=== PATIENT | male | born 1940 | race Caucasian/White ===

== ENCOUNTER 2021-02-13 11:30 | Emergency (ER) | payer MEDICARE, BC ==
[2021-02-13] MEDS ORDERED: Lidocaine 1% 10 ML MDV ONE ×2 (11:35→16:00)
[2021-02-13] MEDS ORDERED: propofoL 100 ML ONE (11:47)
--- NOTE | 2021-02-13 11:55 | EDM.PDOC ---
ED HPI GENERAL MEDICAL PROBLEM - General Chief Complaint: CPR in Progress Stated Complaint: [facility] Time Seen by Provider: 02/13/21 11:30 Source of Information: Reports: EMS History Limitations: Reports: Other (Unresponsive) - History of Present Illness INITIAL COMMENTS - FREE TEXT/NARRATIVE: 80-year-old male presents to the ED with CPR in progress. 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 The owners attended to him quickly and identified no pulse and started CPR. CPR is estimated to have lasted a minute to a minute and a half. They had an AED in their facility and were able to attach it appropriately and it suggested shock advised. Apparently a shock was given. Paramedics arrived about that time and took over care. They identified that the patient was in and out of V. tach with an underlying fast rhythm suggestive of A. fib. Patient started to have agonal breathing and a facilitated his breathing by initial Ambu bag and then a simple mask at 15 L/min. Upon arrival in the emergency room the patient is unresponsive. He is taking agonal breaths. He was resuscitated with Ambu bag at 15 L/min. Plans to intubate were organized. His rhythm on the monitor revealed V. tach and therefore he was given lidocaine 150 mg IV bolus. This did improve his V. tach and his underlyi ng rhythm was in the 150s and 160s at atrial fibrillation. Subsequently was started on amiodarone infusion at 60 mg an hour. He did receive a bolus of 150mg of amiodarone as well. He was intubated using etomidate 40 mg IV bolus followed by succinylcholine 150 mg IV bolus. Resuscitated at second attempt due to pooled secretions in his airway that required suctioning. No blood in the airway noted. Subsequently had an orogastric tube placed. Foss catheter placed. Chest x-ray reveals orogastric tube to be below the diaphragm in the stomach. ET tube is 2 cm above the wesley and is anchored at 23 cm at the corner of his right lip. Placed on ventilator with a tidal volume of 550 mils and a rate of 12 with an FiO2 of initially of 70% and PEEP of 5. ECG reveals atrial fibrillation with a rate of 110 to 160 bpm. There is a right bundle branch block pattern. There is ST segment depression in leads I, aVL and V3 to V6 suggestive of toy lateral wall non[place]. There are Q waves present in leads II, III and aVF compared with old inferior wall myocardial infarction. Left axis deviation of -76 degrees with QTC markedly prolonged. Once the patient is stabilized rhythm plan will take him to CT for CT head as it is unclear of how hard he hit his head when he fell to the floor. If there is no intracranial bleeding he will be started on heparin infusion 4000 unit bolus and 1000 units an hour. Given rectal suppository of aspirin 300 mg. ABGs to be done. Of note during the initial resuscitation he did receive 1 amp of sodium bicarb. Onset: Today, Sudden Onset Date: 02/13/21 Onset Time: 11:10 Duration: Minutes: Location: Reports: Other (Suffered collapse to the floor and identified to have no pulse resuscitated with an AED in the workplace where he collapsed. Shock was advised and 1 shock was given.) Quality: Reports: Other (Patient arrives unresponsive taking agonal breaths.) Severity: Severe Improves with: Reports: None Worsens with: Reports: None Context: Reports: Other (Sudden collapse while in a local [employer] br[employer] operator shop. Cardiac arrest with CPR started and then AED advised shock advised him 1 shock was given. Patient was in V. tach alternating with a rapid irregular rhythm presumed to be atrial fibrillation by paramedics.). 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 Temperature 36.1 degrees heart rate between 140 and 160 with atrial fibrillation. Respiratory rate 26/min with shallow respirations initial BP 200/110) Eye Exam: Bilateral Eye: Normal Inspection (No blepharal pallor or scleral icterus.), PERRL (Pupils were 8 mm dilated but did respond to light equally.) Ears: Other (No bleeding from either ear.) Nose: Normal Inspection Throat/Mouth: Other (Heavily bearded fellow. No blood on the face) Head: Atraumatic, Normocephalic, Other (No obvious trauma to the head or neck) Neck: No: Lymphadenopathy (R), Lymphadenopathy (L) Respiratory Chest: Respiratory Distress (Agonal breathing shallow breathing) Cardiovascular: No JVD, Irregularly Irregular (Monitor suggest an irregular rhythm between 140 and 160/min and appears to be atrial fibrillation with inter mittent runs of V. tach 12-20 beats at a time. Improved after lidocaine 150 mg IV was given) GI/Abdominal Exam: Soft, Non-Tender, No Organomegaly 0: Femoral (R), Femoral (L) (On initial assessment), 1+: Right Carotid, Left Carotid (Barely palpable carotid pulses.) Extremities: Other (Right leg is bandaged with an Sravan wrap. Edema 4+ pitting both lower extremities) Neurological: Unresponsive Skin Exam: Cool ED CPR PROCEDURES - Endotracheal Intubation Time of Intubation: 11:40 ET Intubation Indication: Cardiac Arrest Preparation: Suction, Balloon Tested, BVM Set Up, Difficult Airway Equip Airway Assessment: Obese, Large Tongue Pre-Oxygenation: Assisted with BVM, 100% FiO2 Anesthesia Meds: Etomidate, Lidocaine (150 mg), Succinylcholine (40 mg 150 mg), Vecuronium (10 mg) Placement: Orotracheal Cords Visualized: No, Grade 3 Number of Attempts: 1 Confirmed By: CO2 Indicator, Bilateral Breath Sounds, Chest Xray Tube Secured By: By RT #1 Interpretation EKG Date: 02/13/21 Time: 12:13 Rhythm: A-Fib Rate (Beats/Min): 109 [place]: LAD-Left [place] Deviation (-76 degrees) P-Wave: Absent QRS: Other (Right bundle branch block pattern Q waves present in leads II, III and aVF compared with old inferior wall myocardial infarction) ST-T: Depressed (ST segment depression in leads I, aVL and V3 to V6 compatible with anterolateral non-STEMI) QT: Prolonged (Markedly prolonged) EKG Interpretation Comments: Abnormal ECG Course - Vital Signs Last Recorded V/S: Last Vital Signs Temp 36.1 C 02/13/21 11:30 Pulse 140 H 02/13/21 11:30 Resp 26 H 02/13/21 11:30 BP 200/110 H 02/13/21 11:30 Pulse Ox 99 02/13/21 11:30 - Orders/Labs/Meds Orders: Active Orders 24 hr Category Date Time Status RASS Sedation Scale [RC] ASDIRECTED Care 02/13/21 12:23 Active RT Ventilator, Adult [RC] ASDIRECTED Care 02/13/21 12:23 Active Heparin Sodium/D5W [Heparin 25,000 Units in D5W 500 ML] Med 02/13/21 12:45 Active 25,000 units in 500 ml IV TITRATE Sodium Chloride 0.9% [Normal Saline] 1,000 ml Med 02/13/21 12:00 Active IV ASDIRECTED Medication Orders Sodium Chloride (Normal Saline) 1,000 mls @ 125 mls/hr IV ASDIRECTED NICK Last Admin: 02/13/21 11:52 Dose: 125 mls/hr Documented by: ISRA Heparin Sodium/Dextrose (Heparin 25,000 Units In D5w 500 Ml) 25,000 units in 500 mls @ 20 mls/hr IV TITRATE NICK Last Admin: 02/13/21 13:24 Dose: 1,000 units/hr, 20 mls/hr Documented by: ISRA Cosigned by: MELYSSA Labs: Laboratory Tests 02/13/21 02/13/21 02/13/21 Range/Units 12:15 12:15 12:15 WBC 10.08 H (4.23-9.07) K/mm3 RBC 4.41 L (4.63-6.08) M/mm3 Hgb 13.3 L (13.7-17.5) gm/dl Hct 41.2 (40.1-51.0) % MCV 93.4 H (79.0-92.2) fl MCH 30.2 (25.7-32.2) pg MCHC 32.3 (32.2-35.5) g/dl RDW Std Deviation 44.7 H (35.1-43.9) fL Plt Count 277 (163-337) K/mm3 MPV 10.5 (9.4-12.3) fl Neut % (Auto) 73.7 H (34.0-67.9) % Lymph % (Auto) 15.2 L (21.8-53.1) % [place] % (Auto) 8.1 (5.3-12.2) % Eos % (Auto) 1.9 (0.8-7.0) Baso % (Auto) 0.4 (0.1-1.2) % Neut # (Auto) 7.43 H (1.78-5.38) K/mm3 Lymph # (Auto) 1.53 (1.32-3.57) K/mm3 [place] # (Auto) 0.82 (0.30-0.82) K/mm3 Eos # (Auto) 0.19 (0.04-0.54) K/mm3 Baso # (Auto) 0.04 (0.01-0.08) K/mm3 ESR 14 (0-15) mm/hr PT 11.5 (9.7-12.0) SECONDS INR 1.04 APTT 22.4 (21.7-31.4) SECONDS Puncture Site ABG pH (7.35-7.45) ABG pCO2 (35.0-45.0) mmHg ABG pO2 (80.0-100.0) mmHg ABG HCO3 (22.0-26.0) meq/L ABG O2 Saturation (96.0-97.0) % ABG Base Excess (-2-2.0) A-a Gradient mmHg FiO2 (21.00-100.00) % Tidal Volume cc PEEP cmH20 Lactic Acid (0.4-2.0) mmol/L Magnesium (1.8-2.4) mg/dL CK-MB (CK-2) (0-3.6) ng/ml Troponin I (0.00-0.056) ng/mL C-Reactive Protein (<1.0) mg/dL NT-Pro-B Natriuret Pep (0-450) pg/mL SARS-CoV-2 RNA (JAM) (NEGATIVE) 02/13/21 02/13/21 02/13/21 Range/Units 12:15 12:15 12:15 WBC (4.23-9.07) K/mm3 RBC (4.63-6.08) M/mm3 Hgb (13.7-17.5) gm/dl Hct (40.1-51.0) % MCV (79.0-92.2) fl MCH (25.7-32.2) pg MCHC (32.2-35.5) g/dl RDW Std Deviation (35.1-43.9) fL Plt Count (163-337) K/mm3 MPV (9.4-12.3) fl Neut % (Auto) (34.0-67.9) % Lymph % (Auto) (21.8-53.1) % [place] % (Auto) (5.3-12.2) % Eos % (Auto) (0.8-7.0) Baso % (Auto) (0.1-1.2) % Neut # (Auto) (1.78-5.38) K/mm3 Lymph # (Auto) (1.32-3.57) K/mm3 [place] # (Auto) (0.30-0.82) K/mm3 Eos # (Auto) (0.04-0.54) K/mm3 Baso # (Auto) (0.01-0.08) K/mm3 ESR (0-15) mm/hr PT (9.7-12.0) SECONDS INR APTT (21.7-31.4) SECONDS Puncture Site ABG pH (7.35-7.45) ABG pCO2 (35.0-45.0) mmHg ABG pO2 (80.0-100.0) mmHg ABG HCO3 (22.0-26.0) meq/L ABG O2 Saturation (96.0-97.0) % ABG Base Excess (-2-2.0) A-a Gradient mmHg FiO2 (21.00-100.00) % Tidal Volume cc PEEP cmH20 Lactic Acid 5.4 H* (0.4-2.0) mmol/L Magnesium 1.7 L (1.8-2.4) mg/dL CK-MB (CK-2) 3.6 (0-3.6) ng/ml Troponin I 0.023 (0.00-0.056) ng/mL C-Reactive Protein 1.4 H* (<1.0) mg/dL NT-Pro-B Natriuret Pep 1935 H (0-450) pg/mL SARS-CoV-2 RNA (JAM) (NEGATIVE) 02/13/21 02/13/21 Range/Units 12:20 12:29 WBC (4.23-9.07) K/mm3 RBC (4.63-6.08) M/mm3 Hgb (13.7-17.5) gm/dl Hct (40.1-51.0) % MCV (79.0-92.2) fl MCH (25.7-32.2) pg MCHC (32.2-35.5) g/dl RDW Std Deviation (35.1-43.9) fL Plt Count (163-337) K/mm3 MPV (9.4-12.3) fl Neut % (Auto) (34.0-67.9) % Lymph % (Auto) (21.8-53.1) % [place] % (Auto) (5.3-12.2) % Eos % (Auto) (0.8-7.0) Baso % (Auto) (0.1-1.2) % Neut # (Auto) (1.78-5.38) K/mm3 Lymph # (Auto) (1.32-3.57) K/mm3 [place] # (Auto) (0.30-0.82) K/mm3 Eos # (Auto) (0.04-0.54) K/mm3 Baso # (Auto) (0.01-0.08) K/mm3 ESR (0-15) mm/hr PT (9.7-12.0) SECONDS INR APTT (21.7-31.4) SECONDS Puncture Site Rt radial ABG pH 7.36 (7.35-7.45) ABG pCO2 45.2 H (35.0-45.0) mmHg ABG pO2 186.0 H* (80.0-100.0) mmHg ABG HCO3 25.0 (22.0-26.0) meq/L ABG O2 Saturation 99.0 H (96.0-97.0) % ABG Base Excess -0.1 (-2-2.0) A-a Gradient 256 mmHg FiO2 70.00 (21.00-100.00) % Tidal Volume 550.0 cc PEEP 5.0 cmH20 Lactic Acid (0.4-2.0) mmol/L Magnesium (1.8-2.4) mg/dL CK-MB (CK-2) (0-3.6) ng/ml Troponin I (0.00-0.056) ng/mL C-Reactive Protein (<1.0) mg/dL NT-Pro-B Natriuret Pep (0-450) pg/mL SARS-CoV-2 RNA (JAM) Negative (NEGATIVE) Meds: Medications Generic Name Dose Route Start Last Admin Trade Name Freq PRN Reason Stop Dose Admin Sodium Chloride 1,000 mls @ 125 mls/hr 02/13/21 12:00 02/13/21 11:52 Normal Saline IV 125 mls/hr ASDIRECTED NICK Administration Heparin Sodium/Dextrose 25,000 units in 500 mls @ 20 mls/hr 02/13/21 12:45 02/13/21 13:24 Heparin 25,000 Units In D5w 500 Ml IV 1,000 units/hr TITRATE NICK 20 mls/hr Administration 1,000 UNITS/HR Discontinued Medications Generic Name Dose Route Start Last Admin Trade Name Freq PRN Reason Stop Dose Admin Aspirin 300 mg 02/13/21 12:43 02/13/21 13:26 Aspirin 300 Mg Supp RECTAL 02/13/21 12:44 300 mg ONETIME ONE Administration Heparin Sodium (Porcine) 4,000 units 02/13/21 12:43 02/13/21 13:16 Heparin Sodium 5,000 Units/Ml Vial IVPUSH 02/13/21 12:44 4,000 units .BOLUS ONE Administration Propofol Confirm 02/13/21 11:47 Diprivan 100 Ml Administered 02/13/21 11:48 Dose 100 mls @ as directed .ROUTE .STK-MED ONE Amiodarone HCl/Dextrose 100 mls @ 600 mls/hr 02/13/21 12:28 02/13/21 12:32 Nexterone In Dextrose 150 Mg/100 Ml IV 02/13/21 12:37 600 mls/hr .BOLUS ONE Administration Protocol Lidocaine HCl Confirm 02/13/21 11:35 Lidocaine 1% 10 Ml Mdv Administered 02/13/21 11:36 Dose 10 ml .ROUTE .STK-MED ONE Vecuronium [place] 10 mg 02/13/21 11:52 02/13/21 13:11 Vecuronium 10 Mg Vial IVPUSH 02/13/21 11:53 10 mg ONETIME ONE Administration Vecuronium [place] Confirm 02/13/21 14:42 Vecuronium 10 Mg Vial Administered 02/13/21 14:43 Dose 10 mg .ROUTE .STK-MED ONE - Radiology Interpretation Free Text/Narrative:: 80-year-old male presents to the ED per [facility] after suffering a collapse to 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 The owners attended him immediately and identified no pulse and no breathing. CPR was started and estimated to have lasted about a minute to a minute and a half. They had an AED on the premises and attached it appropriately to him. It suggested shock advised and he was defibrillated. Paramedics arrived at that time and identified him to be in a rapid irregular rhythm with wide-complex tachycardias intermittent with short complexes. On the strip that the brought with them it appears that he had underlying atrial fibrillation with runs of V. tach. Upon arrival in the ED patient was unresponsive with agonal breathing. Was on a simple mask at 15 L/min and moaning and groaning. Diffuse rattling throughout both upper lung [place] suggestive of possible aspiration. He was therefore intubated with a #8 ET tube at 23 cm corner of his right lip and placed on vent with a tidal volume of 550 mils, FiO2 of 70%, PEEP of 5, rate of 12 .Orogastric tube was placed. Foss catheter placed. Patient had a run of V. tach shortly after being intubated. This was treated with lidocaine 150 mg IV. Subsequently when the amiodarone became available he was started on amiodarone drip at 60 mg an hour. Approximately 15 minutes later he had another run of V. tach and therefore was given 150 mg bolus of amiodarone. ECG reveals evidence of Q waves in leads II, III and aVF compared with old inferior wall myocardial infarction. He had diffuse ST segment to depression in leads I, aVL and V3 to V6 suggesting anterolateral ischemia or non-STEMI. There is a right bundle branch block pattern. QTc markedly prolonged left axis deviation -76 degrees. Once the patient was stabilized he was taken to the CT suite where head CT was performed. Was unclear how hard he hit the floor with his head when he passed out. CT reveals ventricles along with the basal cisterns and sulci over the convexities to be mildly prominent. Minimal diminished density is noted within the periventricular white matter which is most likely due to small vessel ischemic demyelination changes. Slight motion artifact persists within the basal cuts. No definite signs of intracranial hemorrhage are identified. No midline shift or mass-effect identified. There is mild mucosal thickening noted within the ethmoid and frontal sinuses. Minimal fluid is seen within the sphenoid sinus. Mastoid sinuses are clear. Chest x-ray done portably reveals the ET tube to be 2 cm above the wesley and is anchored at 23 cm corner of the right lip. Orogastric tube passes below the diaphragm and into the stomach appropriately. I did touch base with [facility] in [place] and [facility] and both of them did not have availability of an ICU bed. Therefore contacted 1 call service through [facility] in [place] and patient has been accepted formally to the intensive care unit at that facility. He will be flown to that facility per air ambulance. Ventilation settings remain with a tidal volume of 550 mils with an FiO2 of 50% and rate of 14 and PEEP of 5. - Re-Assessments/Exams Free Text/Narrative Re-Assessment/Exam: 02/13/21 13:27White count is 10.08 with 73.7% neutrophils on the auto differential. Hemoglobin is 13.3 hematocrit is 41.2 platelet count 277,000. PT is 11.5 with an INR of 1.04 and a PTT of 22.4. Initial blood gases were not arterial they were mixed. Repeat blood gases were done 15 minutes later and revealed a pH of 7.C36 with a PCO2 of 45.2 and a PO2 of 186.0 bicarb 25 oxygen saturation 99% on the vent. FiO2 was reduced from 70 to 50%. Magnesium is slightly low at 1.76K CK-MB fraction of 3.6 and a troponin I of 0.023 .C- reactive protein 1.4 02/13/21 14:15 pressure is down to 120/72. He is starting to show some bradycardia anywhere from 40 to 58/min. I am going to back off on the amiodarone infusion. Departure - Departure Time of Disposition: 16:05 Disposition: DC/Tfer to Acute Hospital 02 Condition: Serious Clinical Impression: Cardiac arrest due to underlying cardiac condition, Non-STEMI (non-ST elevated myocardial infarction) - Discharge Information *PRESCRIPTION DRUG MONITORING PROGRAM REVIEWED*: Not Applicable *COPY OF PRESCRIPTION DRUG MONITORING REPORT IN PATIENT PIPE: Not Applicable Forms: ED Department Discharge Critical Care Note - Critical Care Note Total Time (mins): 120 Sepsis Event Note (ED) - Focused Exam Vital Signs: Vital Signs Temp Pulse Resp BP Pulse Ox 02/13/21 11:30 36.1 C 140 H 26 H 200/110 H 99 - My Orders Last 24 Hours: My Active Orders 02/13/21 12:00 Sodium Chloride 0.9% [Normal Saline] 1,000 ml IV ASDIRECTED 02/13/21 12:23 RASS Sedation Scale [RC] ASDIRECTED RT Ventilator, Adult [RC] ASDIRECTED 02/13/21 12:45 Heparin Sodium/D5W [Heparin 25,000 Units in D5W 500 ML] 25,000 units in 500 ml IV TITRATE - Assessment/Plan Last 24 Hours: My Active Orders 02/13/21 12:00 Sodium Chloride 0.9% [Normal Saline] 1,000 ml IV ASDIRECTED 02/13/21 12:23 RASS Sedation Scale [RC] ASDIRECTED RT Ventilator, Adult [RC] ASDIRECTED 02/13/21 12:45 Heparin Sodium/D5W [Heparin 25,000 Units in D5W 500 ML] 25,000 units in 500 ml IV TITRATE
[2021-02-13] MEDS ORDERED: Sodium Chloride 0.9% 1,000 ML IV SCH (12:00)
--- NOTE | 2021-02-13 12:16 | CR ---
Chest: Supine view of the chest was obtained. Comparison: No prior chest imaging is available. Endotracheal tube is seen which lies below the clavicle. Tip of the endotracheal tube lies approximately 2 cm above the wesley. Nasogastric tube is seen with tip coursing off the inferior edge of the film but is within the stomach. Pulmonary vessels are congested. Heart size and mediastinum are within normal limits. Impression: 1. Pulmonary vessels are slightly congested. 2. Endotracheal tube approximately 2 cm from the wesley. 3. Satisfactory nasogastric tube placement. Diagnostic code #3
[2021-02-13] MEDS ORDERED: Heparin Sodium 5,000 Units/ML Vial IVPUSH ONE (12:43)
[2021-02-13] MEDS ORDERED: Aspirin 300 MG Supp RECTAL ONE (12:43)
[2021-02-13] MEDS ORDERED: Heparin Sodium/D5W 25,000 UNITS/500 ML BAG IV SCH (12:45)
--- NOTE | 2021-02-13 13:16 | CT ---
Head CT Technique: Multiple axial sections through the brain were obtained. Intravenous contrast was not utilized. Study was repeated due to motion artifact. Reconstructed coronal and sagittal images were obtained. Comparison: No prior intracranial imaging is available. Findings: Ventricles along with basal cisterns and sulci over the convexities are mildly prominent. Minimal diminished density is noted within the periventricular white matter which is most likely due to small vessel ischemic demyelination change. Slight motion artifact persists within the base cuts. No definite findings of intracranial hemorrhage is seen. No midline shift or mass-effect is seen. Bone window settings were reviewed which show fluid within the maxillary sinuses. Mild mucosal thickening is noted within the ethmoid and frontal sinuses. Minimal fluid is seen within the sphenoid sinus. Mastoid sinuses show nothing acute. No definite acute osseous abnormality is appreciated. Impression: 1. Slight sinus findings. Fluid is noted which is most likely relating to patient's underlying condition. Other sinus findings are most likely chronic. 2. Mild senescent change is noted. 3. Nothing acute is definitely appreciated on noncontrast head CT study. Diagnostic code #2
[2021-02-13] MEDS ORDERED: Etomidate 2 MG/ML 20 ML SDV IVPUSH ONE (16:00)
[2021-02-13] MEDS ORDERED: Succinylcholine 200 MG/10 ML MDV ONE (16:00)
[2021-02-13] MEDS ORDERED: Sodium Bicarbonate 8.4% 50 MEQ/50 ML Syringe ONE (16:00)
== END 2021-02-13 16:31 ==
LOC: JD.ED 11:30
DX: I21.4 Non-ST elevation (NSTEMI) myocardial infarction (principal); I46.2 Cardiac arrest due to underlying cardiac condition; Z20.822 Contact with and (suspected) exposure to COVID-19
CPT/HCPCS: 31500; 36415; 36600; 43752; 51702; 70450; 71045; 82553; 82803; 83605; 83735; 83880; 84484; 85025; 85610; 85652; 85730; 86140; 92950; 93005; 96365; 96375; 99291; A9270; J0282; J0330; J1644; J2704; J3490; J7030; U0002; 93010; 99292

== ENCOUNTER 2022-10-23 11:04 | Emergency (ER) | payer BC, MEDICARE ==
[2022-10-23] MEDS ORDERED: Sodium Chloride 0.9% 10 ML Syringe FLUSH PRN (11:22)
[2022-10-23 12:13] LABS: BASOPHILS ABSOLUTE AUTO 0.02 K/mm3 (0.01-0.08); BASOPHILS PERCENT AUTO 0.3 % (0.1-1.2); EOSINOPHILS ABSOLUTE AUTO 0.14 K/mm3 (0.04-0.54); EOSINOPHILS PERCENT AUTO 2.4 (0.8-7.0); HEMATOCRIT 35.2 % (40.1-51.0); HEMOGLOBIN 11.1 gm/dl (13.7-17.5); IMMATURE GRAN ABSOLUTE AUTO 0.01 K/mm3 (0.00-0.10); IMMATURE GRAN PERCENT AUTO 0.2 % (<=1.0); LYMPHOCYTES ABSOLUTE AUTO 0.59 K/mm3 (1.32-3.57); LYMPHOCYTES PERCENT AUTO 10.2 % (21.8-53.1); MEAN CORPUSCULAR HEMOGLOBIN 30.9 pg (25.7-32.2); MEAN CORPUSCULAR HGB CONC 31.5 g/dl (32.2-35.5); MEAN CORPUSCULAR VOLUME 98.1 fl (79.0-92.2); MEAN PLATELET VOLUME 11.2 fl (9.4-12.3); MONOCYTES ABSOLUTE AUTO 0.54 K/mm3 (0.30-0.82); MONOCYTES PERCENT AUTO 9.4 % (5.3-12.2); NEUTROPHILS ABSOLUTE AUTO 4.46 K/mm3 (1.78-5.38); NEUTROPHILS PERCENT AUTO 77.5 % (34.0-67.9); PLATELET COUNT,PLT 201 K/mm3 (163-337); RED BLOOD CELL COUNT 3.59 M/mm3 (4.63-6.08); WHITE BLOOD CELL COUNT,WBC 5.76 K/mm3 (4.23-9.07)
[2022-10-23 12:38] LABS: ALANINE AMINOTRANSFERASE,ALT 37 U/L (16-63); ALBUMIN 3.4 g/dl (3.4-5.0); ALKALINE PHOSPHATASE 56 U/L (46-116); ANION GAP 14.8 (5-15); ASPARTATE AMNIOTRANSFERASE,AST 22 U/L (15-37); BILIRUBIN TOTAL 0.7 mg/dL (0.2-1.0); BLOOD UREA NITROGEN,BUN 19 mg/dL (7-18); BUN/CREATININE RATIO 11.2 (14-18); C-REACTIVE PROTEIN 0.9 mg/dL (<1.0); CALCIUM 9.2 mg/dL (8.5-10.1); CARBON DIOXIDE,CO2 30 mEq/L (21-32); CHLORIDE,CL 102 mEq/L (98-107); CREATININE 1.7 mg/dL (0.7-1.3); ESTIMATED GFR 40 mL/min (>60); GLUCOSE RANDOM 106 mg/dL (70-99); POTASSIUM,K 3.8 mEq/L (3.5-5.1); PROTEIN TOTAL,TP 6.9 g/dl (6.4-8.2); SODIUM,NA 143 mEq/L (136-145)
[2022-10-23 12:53] LABS: APPEARANCE,URINE CLEAR (Clear); BILIRUBIN,URINE NEGATIVE (Negative); COLOR,URINE YELLOW (Yellow); GLUCOSE,URINE NEGATIVE (Negative); KETONES,URINE NEGATIVE (Negative); LEUKOCYTE ESTERASE,URINE 1+ (Negative); NITRITE,URINE POSITIVE (Negative); OCCULT BLOOD,URINE TRACE-INTACT (Negative); PROTEIN,URINE 1+ (Negative); UROBILINOGEN,URINE 0.2 (0.2-1.0)
[2022-10-23] MEDS ORDERED: Torsemide 20 MG Tab PO ONE (13:53)
[2022-10-23 14:35] LABS: BACTERIA,URINE MANY /hpf (FEW); HYALINE CASTS,URINE 0-5 /lpf (0-5); MUCUS,URINE FEW /hpf (FEW); RBC,URINE 0-5 /hpf (0-5); SQUAMOUS EPITHELIAL CELLS,UR 0-5 /hpf (0-5); WBC,URINE 0-5 /hpf (0-5)
== END 2022-10-23 14:25 | disposition home or self-care (01) ==
LOC: JD.ED 11:04
DX: N30.00 Acute cystitis without hematuria (principal); R60.0 Localized edema; I25.2 Old myocardial infarction; J44.9 Chronic obstructive pulmonary disease, unspecified; E11.9 Type 2 diabetes mellitus without complications; Z79.01 Long term (current) use of anticoagulants; Z79.02 Long term (current) use of antithrombotics/antiplatelets; Z79.899 Other long term (current) drug therapy; Z79.84 Long term (current) use of oral hypoglycemic drugs
CPT/HCPCS: 36415; 70450; 71046; 80053; 81001; 83880; 84484; 85025; 86140; 87086; 87088; 87186; 93005; 99284; A9270; J3490; 93010; 99283

== ENCOUNTER 2023-11-25 04:09 | Emergency (ER) | payer MEDICARE ==
[2023-11-25 04:25] LABS: BASOPHILS PERCENT AUTO 0.2 % (0.0-1.0); EOSINOPHILS ABSOLUTE AUTO 0.1 K/mm3 (0.0-0.4); HEMATOCRIT 32.1 % (42.0-52.0); HEMOGLOBIN 10.8 gm/dl (14.0-18.0); IMMATURE GRAN ABSOLUTE AUTO 0.21 K/mm3 (0.00-0.05); IMMATURE GRAN PERCENT AUTO 2.3 % (0.0-0.4); LYMPHOCYTES ABSOLUTE AUTO 0.6 K/mm3 (1.0-4.8); MEAN CORPUSCULAR HEMOGLOBIN 31.5 pg (28.0-32.0); MEAN CORPUSCULAR HGB CONC 33.6 g/dl (32.0-36.0); MEAN CORPUSCULAR VOLUME 93.6 fl (83.0-99.0); MEAN PLATELET VOLUME 8.9 fl (9.4-12.4); MONOCYTES ABSOLUTE AUTO 0.8 K/mm3 (0.0-0.8); MONOCYTES PERCENT AUTO 8.5 % (0.0-8.0); NEUTROPHILS ABSOLUTE AUTO 7.4 K/mm3 (1.8-7.7); PLATELET COUNT,PLT 241 K/mm3 (150-400); RED BLOOD CELL COUNT 3.43 M/mm3 (4.52-5.90); WHITE BLOOD CELL COUNT,WBC 9.09 K/mm3 (3.9-11.3)
[2023-11-25 05:05] LABS: A/G RATIO 0.8 (1-2); ALBUMIN 3.2 g/dl (3.4-5.0); ANION GAP 7.9 (5-15); BILIRUBIN TOTAL 0.5 mg/dL (0.2-1.0); BUN/CREATININE RATIO 27.4 (14-18); CALCIUM 8.9 mg/dL (8.5-10.1); CREATININE 2.7 mg/dL (0.7-1.3); EST CRCL DRUG DOSING (CG) 20.06 mL/min; POTASSIUM,K 3.9 mEq/L (3.5-5.1)
[2023-11-25] MEDS: Sodium Chloride 0.9% 500 ML IV ONE (05:38)
== END 2023-11-25 08:15 | disposition home or self-care (01) ==
LOC: JD.ED 04:09
DX: I20.0 Unstable angina (principal); E86.0 Dehydration; I50.9 Heart failure, unspecified; J44.9 Chronic obstructive pulmonary disease, unspecified; I25.2 Old myocardial infarction; E11.9 Type 2 diabetes mellitus without complications; Z79.01 Long term (current) use of anticoagulants; Z79.02 Long term (current) use of antithrombotics/antiplatelets; Z79.899 Other long term (current) drug therapy
CPT/HCPCS: 36415; 71045; 80053; 83880; 84484; 85025; 93005; 96360; 99285; J7030; 93010; 99283

== ENCOUNTER 2024-03-01 08:24 | Inpatient (IN) | payer MEDICARE ==
[2024-03-01 09:10] LABS: BASOPHILS PERCENT AUTO 0.1 % (0.0-1.0); EOSINOPHILS PERCENT AUTO 0.1 % (0.0-6.0); HEMOGLOBIN 12.6 gm/dl (14.0-18.0); IMMATURE GRAN ABSOLUTE AUTO 0.27 K/mm3 (0.00-0.05); IMMATURE GRAN PERCENT AUTO 1.9 % (0.0-0.4); LYMPHOCYTES ABSOLUTE AUTO 0.6 K/mm3 (1.0-4.8); LYMPHOCYTES PERCENT AUTO 3.9 % (24.0-44.0); MEAN CORPUSCULAR HEMOGLOBIN 31.3 pg (28.0-32.0); MEAN CORPUSCULAR VOLUME 86.8 fl (83.0-99.0); MEAN PLATELET VOLUME 11.5 fl (9.4-12.4); MONOCYTES ABSOLUTE AUTO 0.9 K/mm3 (0.0-0.8); MONOCYTES PERCENT AUTO 6.1 % (0.0-8.0); NEUTROPHILS ABSOLUTE AUTO 12.3 K/mm3 (1.8-7.7); NEUTROPHILS PERCENT AUTO 87.9 % (41.0-71.0); PLATELET COUNT,PLT 244 K/mm3 (150-400); RED BLOOD CELL COUNT 4.03 M/mm3 (4.52-5.90); WHITE BLOOD CELL COUNT,WBC 13.99 K/mm3 (3.9-11.3)
[2024-03-01] MEDS: fentaNYL 100 MCG/2 ML SDV IVPUSH ONE (09:34)
[2024-03-01] MEDS: Sodium Chloride 0.9% 10 ML Syringe FLUSH PRN (09:36)
[2024-03-01] MEDS: Sodium Chloride 0.9% 500 ML IV ONE ×2 (09:37→13:10)
[2024-03-01] MEDS: Ondansetron 4 MG/2 ML SDV IVPUSH ONE (10:36)
[2024-03-01 10:39] LABS: ALBUMIN 3.8 g/dl (3.4-5.0); BILIRUBIN TOTAL 0.8 mg/dL (0.2-1.0); CALCIUM 9.4 mg/dL (8.5-10.1); CREATININE 5.1 mg/dL (0.7-1.3); EST CRCL DRUG DOSING (CG) 10.62 mL/min; PROTEIN TOTAL,TP 7.8 g/dl (6.4-8.2)
[2024-03-01 11:21] LABS: APPEARANCE,URINE TURBID (Clear); BILIRUBIN,URINE NEGATIVE (Negative); COLOR,URINE DARK YELLOW (Yellow); GLUCOSE,URINE 2+ (Negative); KETONES,URINE NEGATIVE (Negative); LEUKOCYTE ESTERASE,URINE TRACE (Negative); NITRITE,URINE NEGATIVE (Negative); OCCULT BLOOD,URINE 2+ (Negative); PH,URINE 8.5 (5.0-8.0); PROTEIN,URINE 3+ (Negative)
[2024-03-01 11:40] LABS: AMORPHOUS SEDIMENT,URINE MANY /hpf (NOT SEEN); BACTERIA,URINE MANY /hpf (FEW); MUCUS,URINE NOT SEEN /hpf (FEW); RBC,URINE 20-30 /hpf (0-5); SQUAMOUS EPITHELIAL CELLS,UR NOT SEEN /hpf (0-5)
[2024-03-01] MEDS: cefTRIAXone 1 GM in Sodium Chloride 0.9% 100 ML IV ONE (13:13)
[2024-03-01] MEDS: Meclizine 25 MG Tab PO ONE (13:30)
[2024-03-01 13:38] LABS: LACTIC ACID 1.4 mmol/L (0.4-2.0)
[2024-03-01 16:05] LABS: ANION GAP 16.6 (5-15); CALCIUM 8.9 mg/dL (8.5-10.1); CREATININE 4.8 mg/dL (0.7-1.3); EST CRCL DRUG DOSING (CG) 11.28 mL/min; POTASSIUM,K 2.6 mEq/L (3.5-5.1)
[2024-03-01] MEDS ORDERED: HYDROmorphone 0.5 MG/0.5 ML Syringe IVPUSH PRN (16:31)
[2024-03-01] MEDS ORDERED: Naloxone 0.4 MG/ML SDV IVPUSH PRN (16:31)
[2024-03-01] MEDS: Potassium Chloride 10 MEQ in Premix Bag 1 BAG IV SCH (17:06)
[2024-03-01] MEDS: Potassium Chloride 20 MEQ Tab.ER PO ONE (17:06)
[2024-03-01] MEDS: Sodium Chloride 0.9% 1,000 ML IV SCH (17:06)
[2024-03-01] MEDS: Ondansetron 4 MG/2 ML SDV IV PRN (17:14)
[2024-03-01] MEDS ORDERED: 50% Dextrose in Water 50 ML Syringe IVPUSH PRN (19:28)
[2024-03-01] MEDS: Apixaban 5 MG Tab PO SCH (21:08)
[2024-03-02 06:33] LABS: BASOPHILS PERCENT AUTO 0.2 % (0.0-1.0); EOSINOPHILS PERCENT AUTO 0.4 % (0.0-6.0); HEMATOCRIT 29.8 % (42.0-52.0); IMMATURE GRAN PERCENT AUTO 1.9 % (0.0-0.4); LYMPHOCYTES ABSOLUTE AUTO 0.4 K/mm3 (1.0-4.8); LYMPHOCYTES PERCENT AUTO 4.2 % (24.0-44.0); MEAN CORPUSCULAR HEMOGLOBIN 31.5 pg (28.0-32.0); MEAN CORPUSCULAR HGB CONC 35.2 g/dl (32.0-36.0); MEAN CORPUSCULAR VOLUME 89.5 fl (83.0-99.0); MEAN PLATELET VOLUME 10.5 fl (9.4-12.4); MONOCYTES ABSOLUTE AUTO 0.6 K/mm3 (0.0-0.8); MONOCYTES PERCENT AUTO 6.2 % (0.0-8.0); NEUTROPHILS PERCENT AUTO 87.1 % (41.0-71.0); PLATELET COUNT,PLT 186 K/mm3 (150-400); RED BLOOD CELL COUNT 3.33 M/mm3 (4.52-5.90)
[2024-03-02] MEDS: Sodium Chloride 0.9% 1,000 ML IV SCH (06:44)
[2024-03-02] MEDS: Pantoprazole 40 MG Tab.CR PO SCH (06:48)
[2024-03-02 06:56] LABS: HEMOGLOBIN 10.5 gm/dl (14.0-18.0)
[2024-03-02 06:57] LABS: ANION GAP 15.6 (5-15); BUN/CREATININE RATIO 18.6 (14-18); CALCIUM 8.9 mg/dL (8.5-10.1); CREATININE 4.4 mg/dL (0.7-1.3); EST CRCL DRUG DOSING (CG) 11.89 mL/min; POTASSIUM,K 2.6 mEq/L (3.5-5.1)
[2024-03-02] MEDS: Rosuvastatin 10 MG Tab PO SCH (08:35)
[2024-03-02] MEDS: Amiodarone 200 MG Tab PO SCH (08:35)
[2024-03-02] MEDS: Sennosides/Docusate Sodium 50-8.6 MG Tab PO SCH (08:36)
[2024-03-02] MEDS: Clopidogrel 75 MG Tab PO SCH (08:36)
[2024-03-02] MEDS: Polyethylene Glycol 3350 Powder 17 GM Packet PO SCH (08:36)
[2024-03-02] MEDS: Insulin Lispro 100 Unit/ML 3 ML KwikPen SUBCUT SCH (08:36)
[2024-03-02] MEDS ORDERED: Cefepime 1 GM Vial IM SCH (10:00)
[2024-03-02] MEDS: Cefepime 2 GM in Sodium Chloride 0.9% 50 ML IV SCH (10:27)
[2024-03-02] MEDS: NS + KCl 20mEq/L 1,000 ML IV SCH (11:28)
[2024-03-02] MEDS ORDERED: Cefepime 1 GM in Sodium Chloride 0.9% 50 ML IV SCH (12:30)
[2024-03-02] MEDS: Apixaban 2.5 MG Tab PO SCH (23:08)
[2024-03-03 04:51] LABS: BASOPHILS PERCENT AUTO 0.2 % (0.0-1.0); EOSINOPHILS ABSOLUTE AUTO 0.1 K/mm3 (0.0-0.4); EOSINOPHILS PERCENT AUTO 1.2 % (0.0-6.0); HEMATOCRIT 32.3 % (42.0-52.0); HEMOGLOBIN 11.2 gm/dl (14.0-18.0); IMMATURE GRAN ABSOLUTE AUTO 0.31 K/mm3 (0.00-0.05); IMMATURE GRAN PERCENT AUTO 2.8 % (0.0-0.4); LYMPHOCYTES ABSOLUTE AUTO 0.5 K/mm3 (1.0-4.8); LYMPHOCYTES PERCENT AUTO 4.5 % (24.0-44.0); MEAN CORPUSCULAR HEMOGLOBIN 31.1 pg (28.0-32.0); MEAN CORPUSCULAR HGB CONC 34.7 g/dl (32.0-36.0); MEAN CORPUSCULAR VOLUME 89.7 fl (83.0-99.0); MEAN PLATELET VOLUME 10.6 fl (9.4-12.4); MONOCYTES ABSOLUTE AUTO 0.8 K/mm3 (0.0-0.8); MONOCYTES PERCENT AUTO 7.3 % (0.0-8.0); NEUTROPHILS ABSOLUTE AUTO 9.5 K/mm3 (1.8-7.7); PLATELET COUNT,PLT 192 K/mm3 (150-400); WHITE BLOOD CELL COUNT,WBC 11.23 K/mm3 (3.9-11.3)
[2024-03-03 05:08] LABS: ANION GAP 14.1 (5-15); BUN/CREATININE RATIO 17.8 (14-18); C-REACTIVE PROTEIN 3.77 mg/dL (<0.30); CALCIUM 9.1 mg/dL (8.5-10.1); CREATININE 3.2 mg/dL (0.7-1.3); EST CRCL DRUG DOSING (CG) 16.35 mL/min
[2024-03-03 05:39] LABS: POTASSIUM,K 3.1 mEq/L (3.5-5.1)
[2024-03-03] MEDS: oxyCODONE 5 MG Tab PO PRN (07:02)
[2024-03-03] MEDS: Potassium Chloride 20 MEQ Tab.ER PO ONE (08:33)
[2024-03-03] MEDS: Cefepime 2 GM in Sodium Chloride 0.9% 100 ML IV SCH (11:00)
[2024-03-04 06:29] LABS: HEMATOCRIT 36.6 % (42.0-52.0); HEMOGLOBIN 12.3 gm/dl (14.0-18.0); MEAN CORPUSCULAR HEMOGLOBIN 31.2 pg (28.0-32.0); MEAN CORPUSCULAR HGB CONC 33.6 g/dl (32.0-36.0); MEAN CORPUSCULAR VOLUME 92.9 fl (83.0-99.0); MEAN PLATELET VOLUME 10.1 fl (9.4-12.4); PLATELET COUNT,PLT 214 K/mm3 (150-400); RED BLOOD CELL COUNT 3.94 M/mm3 (4.52-5.90); WHITE BLOOD CELL COUNT,WBC 12.38 K/mm3 (3.9-11.3)
[2024-03-04 07:18] LABS: A/G RATIO 0.8 (1-2); ALBUMIN 3.2 g/dl (3.4-5.0); ANION GAP 16.5 (5-15); BILIRUBIN TOTAL 0.6 mg/dL (0.2-1.0); BUN/CREATININE RATIO 15.7 (14-18); C-REACTIVE PROTEIN 2.64 mg/dL (<0.30); CALCIUM 9.7 mg/dL (8.5-10.1); CREATININE 2.8 mg/dL (0.7-1.3); EST CRCL DRUG DOSING (CG) 18.69 mL/min; POTASSIUM,K 3.5 mEq/L (3.5-5.1); PROTEIN TOTAL,TP 7.4 g/dl (6.4-8.2)
[2024-03-04] MEDS: Torsemide 20 MG Tab PO SCH (09:43)
[2024-03-05] MEDS: Metoclopramide 10 MG/2 ML SDV IVPUSH ONE (02:09)
[2024-03-05 05:58] LABS: HEMATOCRIT 39.3 % (42.0-52.0); HEMOGLOBIN 13.4 gm/dl (14.0-18.0); MEAN CORPUSCULAR HEMOGLOBIN 31.1 pg (28.0-32.0); MEAN CORPUSCULAR HGB CONC 34.1 g/dl (32.0-36.0); MEAN CORPUSCULAR VOLUME 91.2 fl (83.0-99.0); MEAN PLATELET VOLUME 10.2 fl (9.4-12.4); PLATELET COUNT,PLT 229 K/mm3 (150-400); RED BLOOD CELL COUNT 4.31 M/mm3 (4.52-5.90)
[2024-03-05 06:15] LABS: A/G RATIO 0.8 (1-2); ALBUMIN 3.4 g/dl (3.4-5.0); BILIRUBIN TOTAL 0.6 mg/dL (0.2-1.0); BUN/CREATININE RATIO 14.1 (14-18); C-REACTIVE PROTEIN 1.76 mg/dL (<0.30); CALCIUM 10.3 mg/dL (8.5-10.1); CREATININE 3.2 mg/dL (0.7-1.3); EST CRCL DRUG DOSING (CG) 16.35 mL/min; PROTEIN TOTAL,TP 7.9 g/dl (6.4-8.2)
[2024-03-05] MEDS: Sodium Chloride 0.9% 250 ML IV SCH (06:52)
[2024-03-05] MEDS: Potassium Chloride 10 MEQ in Premix Bag 1 BAG IV SCH ×2 (06:52→14:21)
[2024-03-05] MEDS: Potassium Chloride 20 MEQ Tab.ER PO SCH (08:35)
[2024-03-05] MEDS: Docusate Sodium 100 MG Cap PO SCH (21:41)
[2024-03-06 06:14] LABS: A/G RATIO 0.8 (1-2); ALBUMIN 3.3 g/dl (3.4-5.0); BILIRUBIN TOTAL 0.7 mg/dL (0.2-1.0); BUN/CREATININE RATIO 16.1 (14-18); C-REACTIVE PROTEIN 0.9 mg/dL (<0.30); CALCIUM 9.7 mg/dL (8.5-10.1); CREATININE 3.3 mg/dL (0.7-1.3); EST CRCL DRUG DOSING (CG) 15.86 mL/min; PROTEIN TOTAL,TP 7.5 g/dl (6.4-8.2)
[2024-03-06] MEDS: Potassium Chloride 10 MEQ in Premix Bag 1 BAG IV SCH (08:25)
[2024-03-06] MEDS: Sodium Chloride 0.9% 50 ML IV SCH (11:15)
[2024-03-07] MEDS: Ondansetron 4 MG Tab.DIS PO PRN (04:54)
[2024-03-07 06:09] LABS: A/G RATIO 0.9 (1-2); ALBUMIN 3.5 g/dl (3.4-5.0); ANION GAP 17.2 (5-15); BILIRUBIN TOTAL 0.6 mg/dL (0.2-1.0); BUN/CREATININE RATIO 14.9 (14-18); CALCIUM 9.6 mg/dL (8.5-10.1); CREATININE 3.7 mg/dL (0.7-1.3); EST CRCL DRUG DOSING (CG) 14.14 mL/min; POTASSIUM,K 3.2 mEq/L (3.5-5.1); PROTEIN TOTAL,TP 7.5 g/dl (6.4-8.2)
[2024-03-07] MEDS: Lactulose Soln 10 GM/15 ML 30 ML UD Cup PO SCH (18:06)
[2024-03-07] MEDS: Potassium Chloride 20 MEQ Tab.ER PO ONE (18:07)
[2024-03-07] MEDS: Mirtazapine 15 MG Tab PO SCH (21:39)
[2024-03-07] MEDS: Amoxicillin/Clavulanate K 500-125 MG Tab PO SCH (21:39)
[2024-03-08 06:04] LABS: A/G RATIO 0.8 (1-2); ALBUMIN 3.5 g/dl (3.4-5.0); ANION GAP 18.1 (5-15); BILIRUBIN TOTAL 0.5 mg/dL (0.2-1.0); BUN/CREATININE RATIO 14.2 (14-18); CALCIUM 9.8 mg/dL (8.5-10.1); CREATININE 3.3 mg/dL (0.7-1.3); EST CRCL DRUG DOSING (CG) 15.86 mL/min; POTASSIUM,K 3.1 mEq/L (3.5-5.1); PROTEIN TOTAL,TP 7.7 g/dl (6.4-8.2)
[2024-03-08] MEDS: Empagliflozin 25 MG Tab PO SCH (09:23)
[2024-03-08] MEDS: Potassium Chloride 20 MEQ Tab.ER PO ONE (11:53)
[2024-03-08] MEDS ORDERED: Potassium Chloride 20 MEQ Tab.ER PO ONE (14:05)
[2024-03-08] MEDS: Acetaminophen 325 MG Tab PO PRN (14:24)
[2024-03-08] MEDS ORDERED: Naloxone 0.4 MG/ML SDV IVPUSH PRN (15:01)
[2024-03-08] MEDS: Morphine 2 MG/ML SYRINGE IVPUSH ONE (15:12)
[2024-03-08] MEDS: LORazepam 1 MG Tab PO ONE (15:20)
[2024-03-08] MEDS: LORazepam 2 MG/ML SDV IVPUSH ONE (22:26)
[2024-03-09] MEDS: Ondansetron 4 MG/2 ML SDV IVPUSH PRN (07:05)
[2024-03-09 07:15] LABS: ANION GAP 17.6 (5-15); BILIRUBIN TOTAL 0.6 mg/dL (0.2-1.0); BUN/CREATININE RATIO 15.1 (14-18); CALCIUM 10.1 mg/dL (8.5-10.1); PHOSPHORUS 5.1 mg/dL (2.6-4.7); POTASSIUM,K 3.6 mEq/L (3.5-5.1)
[2024-03-09 07:27] LABS: A/G RATIO 0.9 (1-2); ALBUMIN 3.6 g/dl (3.4-5.0); CREATININE 3.9 mg/dL (0.7-1.3); EST CRCL DRUG DOSING (CG) 13.42 mL/min; MAGNESIUM 3.4 mg/dL (1.8-2.4); PROTEIN TOTAL,TP 7.8 g/dl (6.4-8.2)
[2024-03-09] MEDS ORDERED: Metoclopramide 10 MG/2 ML SDV IVPUSH PRN (19:21)
[2024-03-09] MEDS: Docusate Sodium 100 MG Cap PO SCH (21:32)
[2024-03-09] MEDS: Insulin Lispro 100 Unit/ML 3 ML KwikPen SUBCUT SCH (21:46)
[2024-03-10 05:12] LABS: BUN/CREATININE RATIO 14.5 (14-18); CREATININE 4.9 mg/dL (0.7-1.3); EST CRCL DRUG DOSING (CG) 10.68 mL/min; MAGNESIUM 3.7 mg/dL (1.8-2.4)
[2024-03-10] MEDS: Sodium Chloride 0.9% 1,000 ML IV SCH (09:32)
== END 2024-03-10 10:48 | DRG 698 ==
LOC: JD.ED 08:24 → JD.MS 16:31
PROVIDERS: ADMIT Family Medicine; ATTEND Student in an Organized Health Care Education/Training Program
PROC: 0T2BX0Z Change Drainage Device in Bladder, External Approach (ICD-10-PCS; principal; 2024-03-01)
PROC: 3E03329 Introduction of Other Anti-infective into Peripheral Vein, Percutaneous Approach (ICD-10-PCS; 2024-03-01)
DX: T83.511A Infection and inflammatory reaction due to indwelling urethral catheter, initial encounter (principal); A41.59 Other Gram-negative sepsis; I50.43 Acute on chronic combined systolic (congestive) and diastolic (congestive) heart failure; R65.20 Severe sepsis without septic shock; R79.0 Abnormal level of blood mineral; I50.9 Heart failure, unspecified; N30.00 Acute cystitis without hematuria; E11.9 Type 2 diabetes mellitus without complications; N17.9 Acute kidney failure, unspecified; E87.1 Hypo-osmolality and hyponatremia; I48.20 Chronic atrial fibrillation, unspecified; N18.5 Chronic kidney disease, stage 5; Z16.29 Resistance to other single specified antibiotic; I13.2 Hypertensive heart and chronic kidney disease with heart failure and with stage 5 chronic kidney disease, or end stage renal disease; Z66 Do not resuscitate; K59.00 Constipation, unspecified; J44.9 Chronic obstructive pulmonary disease, unspecified; K86.89 Other specified diseases of pancreas; E87.6 Hypokalemia; I25.10 Atherosclerotic heart disease of native coronary artery without angina pectoris; E11.22 Type 2 diabetes mellitus with diabetic chronic kidney disease; E66.9 Obesity, unspecified; E86.1 Hypovolemia; E87.8 Other disorders of electrolyte and fluid balance, not elsewhere classified; E86.0 Dehydration; E11.69 Type 2 diabetes mellitus with other specified complication; Z79.02 Long term (current) use of antithrombotics/antiplatelets; Z79.899 Other long term (current) drug therapy; Z79.01 Long term (current) use of anticoagulants; Z79.84 Long term (current) use of oral hypoglycemic drugs; I25.2 Old myocardial infarction; Z68.28 Body mass index [BMI] 28.0-28.9, adult
CPT/HCPCS: 36415; 71045; 74176; 80048; 80053; 81001; 82550; 83605; 83690; 83735; 83880; 85025; 87040 ×2; 87086; 87088; 87186; 93005 ×2; 96361; 96365; 96375; 99285; A9270; J0696; J2405; J3010; J3490 ×2; J7030 ×2; 51702; 82947; 84100; 85027; 86140; 87641; 93010; 94761; 97110-GP; 97162-GP; 99223; 99231; 99232; 99239; J0692; J1815; J2060; J2270; J3480; J7050; U0002

== ENCOUNTER 2025-01-18 04:29 | Emergency (ER) | payer MEDICARE ==
[2025-01-18] MEDS ORDERED: Sodium Chloride 0.9% 10 ML Syringe FLUSH PRN (04:41)
[2025-01-18 05:32] LABS: BASOPHILS ABSOLUTE AUTO 0.0 K/mm3 (0.0-0.2); BASOPHILS PERCENT AUTO 0.6 % (0.0-1.0); EOSINOPHILS ABSOLUTE AUTO 0.4 K/mm3 (0.0-0.4); EOSINOPHILS PERCENT AUTO 5.3 % (0.0-6.0); IMMATURE GRAN ABSOLUTE AUTO 0.06 K/mm3 (0.00-0.05); IMMATURE GRAN PERCENT AUTO 0.8 % (0.0-0.4); LYMPHOCYTES ABSOLUTE AUTO 1.0 K/mm3 (1.0-4.8); LYMPHOCYTES PERCENT AUTO 13.4 % (24.0-44.0); MEAN PLATELET VOLUME 9.7 fl (9.4-12.4); MONOCYTES ABSOLUTE AUTO 0.5 K/mm3 (0.0-0.8); MONOCYTES PERCENT AUTO 7.5 % (0.0-8.0); NEUTROPHILS ABSOLUTE AUTO 5.2 K/mm3 (1.8-7.7); NEUTROPHILS PERCENT AUTO 72.4 % (41.0-71.0); NRBC ABSOLUTE 0.00 (0.00-0.02); NRBC PERCENT 0.0 % (0.0-0.2); PLATELET COUNT,PLT 250 K/mm3 (150-400); RED BLOOD CELL COUNT 3.90 M/mm3 (4.52-5.90); WHITE BLOOD CELL COUNT,WBC 7.11 K/mm3 (3.9-11.3)
[2025-01-18 05:36] LABS: A/G RATIO 0.8 (1-2); ALANINE AMINOTRANSFERASE,ALT 49.0 U/L (16-63); ASPARTATE AMNIOTRANSFERASE,AST 26.0 U/L (15-37); BILIRUBIN TOTAL 0.5 mg/dL (0.2-1.0); BLOOD UREA NITROGEN,BUN 22.0 mg/dL (7-18); CARBON DIOXIDE,CO2 31.0 mEq/L (21-32); CHLORIDE,CL 101.0 mEq/L (98-107); CREATININE 1.8 mg/dL (0.7-1.3); EST CRCL DRUG DOSING (CG) 31.54 mL/min; ESTIMATED GFR 37.0 mL/min (>60); GLUCOSE RANDOM 124.0 mg/dL (70-99); POTASSIUM,K 3.8 mEq/L (3.5-5.1); PROTEIN TOTAL,TP 6.8 g/dl (6.4-8.2); SODIUM,NA 140.0 mEq/L (136-145); TROPONIN I HIGH SENSITIVITY 17.0 pg/mL (<=76)
== END 2025-01-18 09:40 | disposition home or self-care (01) ==
LOC: JD.ED 04:29
DX: I48.11 Longstanding persistent atrial fibrillation (principal); I25.10 Atherosclerotic heart disease of native coronary artery without angina pectoris; I25.2 Old myocardial infarction; E11.9 Type 2 diabetes mellitus without complications; J44.9 Chronic obstructive pulmonary disease, unspecified; I50.9 Heart failure, unspecified; Z79.01 Long term (current) use of anticoagulants; Z79.899 Other long term (current) drug therapy; Z79.84 Long term (current) use of oral hypoglycemic drugs
CPT/HCPCS: 36415; 71045; 71045-26; 80053; 83690; 84484; 85025; 93005; 93010; 99283; 99285